=== PATIENT | female | born 1990 | race African-American/Black ===

== ENCOUNTER 2016-12-05 07:14 | Emergency (ER) | payer OTHER ==
[2016-12-05 07:44] VITALS: BP 122/82
--- NOTE | 2016-12-05 08:44 | UC ---
Kathleen Hart Salem, [facility] on 12/05/16 at 0836 . General HPI - HPI Summary HPI Summary: HPI: Patient is a 26 y/o female who presents to the with vomiting, diarrhea, and abd pain for the last 24 hours. 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 Pt reports she has never experienced these sx for this length before this episode. She also reports vomiting is aggravated by PO intake and so have had little fluid. She denies fever and states that abd pain is worse before BM. She has no other complaints. No hx of travel and hx consistent with food poisoning. FHx: CVA Aunt. 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 MD: FLEX; temp: 99.3, post ox 99, 3/10 pain, occasional EtOH, non-smoker, asthma Hx, visit hx: non-contributory to present problem Nurses note: Pt c/o diarrhea body aches and chills since 4am yesterday. Diarrhea 5x since 4 am. Watery brown. C/O upper abdominal discomfort increased with coughing. Emesis yesterday at 4am "just nausea now". - History of Current Complaint Chief Complaint: UCGI Stated Complaint: DIARRHEA ABD PAIN NAUSEA Time Seen by Provider: 12/05/16 08:10 Hx Obtained From: Patient Onset/Duration: Gradual Onset, Lasting Hours - 24 hours Onset Severity: Moderate Current Severity: Moderate Pain Intensity: 0 Associated Signs & Symptoms: Positive: Abdominal Pain, Diarrhea, Vomiting, Other - PO intake. - Allergy/Home Medications Allergies/Adverse Reactions: Allergies Allergy/AdvReac Type Severity Reaction Status Date / Time Latex Allergy Hives Verified 08/12/16 11:24 seasonal Allergy Congestion Uncoded 06/20/16 15:50 PMH/Surg Hx/FS Hx/Imm Hx Respiratory History Of: Reports: Asthma Neurological History Of: Reports: CVA - age: 13, right arm and right leg weakness - Surgical History Surgical History: None - Family History Known Family History: Positive: Hypertension Negative: Cardiac Disease, Diabetes - Social History Alcohol Use: Occasionally Substance Use Type: None Smoking Status (MU): Never Smoked Tobacco - Immunization History Most Recent Influenza Vaccination: none Most Recent Tetanus Shot: unsure Review of Systems Constitutional: Negative Gastrointestinal: Abdominal Pain, Vomiting, Diarrhea All Other Systems Reviewed And Are Negative: Yes Physical Exam Triage Information Reviewed: Yes Appearance: Well-Appearing, No Pain Distress, Well-Nourished Vital Signs: Initial Vital Signs Temp 99.3 F 12/05/16 07:32 Pulse 83 12/05/16 07:32 Resp 18 12/05/16 07:32 BP 122/82 12/05/16 07:32 Pulse Ox 99 12/05/16 07:32 Vital Signs Reviewed: Yes Eyes: Positive: Conjunctiva Clear ENT: Positive: Normal ENT inspection, Hearing grossly normal, Pharynx normal, TMs normal. Negative: Muffled/hoarse voice Neck: Positive: Supple, No Lymphadenopathy Respiratory: Positive: Chest non-tender, Lungs clear, Normal breath sounds, No respiratory distress Cardiovascular: Positive: RRR, No Murmur Abdomen Description: Positive: Nontender - No abd pain on ambulation or jumping. Subjective discomfort between umbilicus and xiphoid., No Organomegaly, Soft, Other: - Negative Castro's sign.. Negative: CVA Tenderness (R), CVA Tenderness (L), McBurney's Point Tenderness Bowel Sounds: Positive: Hyperactive Musculoskeletal: Positive: Strength Intact, Other: - LUCIANO. Right hand held with wrist flexed secondary to previous CVA. Neurological: Positive: Alert Psychological: Positive: Age Appropriate Behavior Skin Exam: Normal - No sign to dehydration upon examination of skin. Course/Dx - Course Course Of Treatment: Acute abd process vs. viral illness. I discussed dx with pt including a plan of simplifying diet, rest, staying hydrated, and protecting skin around anal area. She voiced understanding. - Differential Dx - Multi-Symptom Provider Diagnoses: Gastroenteritis. Discharge - Discharge Plan Condition: Stable Disposition: HOME Patient Education Materials: Dehydration (ED), Gastroenteritis (ED) Forms: *Work Release Referrals: Lulu Maguire MD [Primary Care Provider] - Additional Instructions: WE DISCUSSED: 1. REST, STAY HYDRATED, BENADRYL IF NEEDED FOR NAUSEA AND TO HELP YOU SLEEP. 2. GO TO ED FOR INCREASED OR FOCUSED ABDOMINAL PAIN OR TEMPERATURE. 3. CALL ME IF YOU HAVE ANY QUESTIONS OR CONCERNS WHEN I AM HERE IN TWO DAYS. The documentation as recorded by the Kathleen [email or web address] Salem accurately reflects the service I personally performed and the decisions made by me, Shaun Perry MD.
== END 2016-12-05 08:38 | disposition home or self-care (01) ==
LOC: UCEAST 07:14
DX: K52.9 Noninfective gastroenteritis and colitis, unspecified (principal); Z86.73 Personal history of transient ischemic attack (TIA), and cerebral infarction without residual deficits
CPT/HCPCS: 99211; G0463

== ENCOUNTER 2017-07-22 15:02 | Emergency (ER) | payer OTHER ==
[2017-07-22 15:13] VITALS: BP 117/68
--- NOTE | 2017-07-22 15:30 | UC ---
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 no prior symptoms, no recent abx use - History of Current Complaint Chief Complaint: UCRespiratory Stated Complaint: COUGH,COLD,SINUS PAIN,CONGESTION Time Seen by Provider: 07/22/17 15:16 Hx Obtained From: Patient Hx Last Menstrual Period: now Onset/Duration: Sudden Onset, Lasting Days Severity Currently: Moderate Severity Initially: Moderate - Allergy/Home Medications Allergies/Adverse Reactions: Allergies Allergy/AdvReac Type Severity Reaction Status Date / Time Latex Allergy Hives Verified 08/12/16 11:24 seasonal Allergy Congestion Uncoded 06/20/16 15:50 PMH/Surg Hx/FS Hx/Imm Hx Previously Healthy: Yes - Surgical History Surgical History: None - Family History Known Family History: Positive: Hypertension Negative: Cardiac Disease, Diabetes - Social History Alcohol Use: Occasionally Substance Use Type: None Smoking Status (MU): Never Smoked Tobacco - Immunization History Most Recent Influenza Vaccination: none Most Recent Tetanus Shot: unsure Review of Systems Constitutional: Fever, Chills, Fatigue ENT: Sore Throat, Sinus Congestion, Sinus Pain/Tenderness Respiratory: Cough Gastrointestinal: Negative Neurological: Headache Is Patient Immunocompromised?: No All Other Systems Reviewed And Are Negative: Yes Physical Exam Triage Information Reviewed: Yes Appearance: No Pain Distress, Well-Nourished, Ill-Appearing - mild Vital Signs: Initial Vital Signs Temp 97.9 F 07/22/17 15:08 Pulse 75 07/22/17 15:08 Resp 18 07/22/17 15:08 BP 117/68 07/22/17 15:08 Pulse Ox 100 07/22/17 15:08 Vital Signs Reviewed: Yes Eyes: Positive: Conjunctiva Clear ENT: Positive: Hearing grossly normal, Pharyngeal erythema - mild, Nasal congestion, TMs normal - unable to visualize right due to cerumen. Negative: Tonsillar swelling, Tonsillar exudate Neck: Positive: Supple, Nontender, No Lymphadenopathy. Negative: Nuchal Rigidity Respiratory: Positive: Chest non-tender, Lungs clear, Normal breath sounds, No respiratory distress, No accessory muscle use. Negative: Crackles, Rhonchi, Stridor, Wheezing Cardiovascular: Positive: RRR, No Murmur Musculoskeletal Exam: Normal Neurological Exam: Normal Flu Course/Dx - Course Course Of Treatment: rapid flu- negative, likely viral URI, conservative treatment, OTCs increase fluid, work note given - Differential Dx/Diagnosis Differential Diagnosis/HQI/PQRI: Broncholiolitis, Influenza, RSV, Upper Respiratory Infection Provider Diagnoses: viral URI Discharge - Discharge Plan Condition: Good Disposition: HOME Prescriptions: Dextromethorphan-Benzocaine [Cepacol Sore Throat & Cou] 1 allyson MT TID PRN #[id number] allyson PRN Reason: Cough Patient Education Materials: Upper Respiratory Infection (ED) Forms: *Work Release Referrals: Lulu Maguire MD [Primary Care Provider] - Additional Instructions: - viral illness, negative flu testing - motrin/ tylenol as needed for pain/ fever/ body aches. - FOllow up with primary physician if no improvement within 5-7 days - work note given - increase fluids
== END 2017-07-22 16:03 | disposition home or self-care (01) ==
LOC: UCEAST 15:02
DX: J06.9 Acute upper respiratory infection, unspecified (principal)
CPT/HCPCS: 87502; 99212; G0463